=== PATIENT | female | born 1970 | race Caucasian/White ===

== ENCOUNTER 2022-02-21 07:36 | Emergency (ER) | payer BC ==
[~2022-02-21] VITALS: Ht 152.4 cm; Wt 70.8 kg
--- NOTE | 2022-02-21 07:36 | NUR ---
Dr Resendiz at the bedside for MSE.
[2022-02-21] MEDS ORDERED: MORPHINE SULFATE 4 MG/1 ML DISP.SYRIN ONE (07:45)
[2022-02-21] MEDS ORDERED: diphenhydrAMINE 50 MG/1 ML VIAL ONE (07:45)
[2022-02-21] MEDS ORDERED: IV NORMAL SALINE 1000 ML BAG IV ONE (07:45)
[2022-02-21] MEDS ORDERED: MORPHINE SULFATE 2 MG/1 ML DISP.SYRIN IV ONE (07:45)
[2022-02-21] MEDS ORDERED: diphenhydrAMINE 50 MG/1 ML VIAL IV ONE (07:45)
[2022-02-21] MEDS ORDERED: MAG HYDROX/AL HYDROX/SIMETH 30 ML LIQUID UDC PO ONE (07:45)
[2022-02-21] MEDS ORDERED: FAMOTIDINE. 20 MG/2 ML VIAL IV ONE ×2 (07:45)
[2022-02-21] MEDS ORDERED: METOCLOPRAMIDE HCL 10 MG/2 ML VIAL ONE (07:45)
[2022-02-21] MEDS ORDERED: LIDOCAINE VISCUS 2% 15 ML UDC MM ONE (07:45)
[2022-02-21] MEDS ORDERED: METOCLOPRAMIDE HCL 10 MG/2 ML VIAL IV ONE (07:45)
[2022-02-21 08:12] LABS: HEMATOCRIT 39.4 % (31.2-41.9); MEAN CORPUSCULAR HEMOGLOBIN 30.2 uug (24.7-32.8); MEAN CORPUSCULAR VOLUME 89.2 fL (75.5-95.3); PLATELET COUNT (AUTO) 226 K/uL (179-408)
[2022-02-21 08:23] LABS: BILIRUBIN,DIRECT 0.1 mg/dL (0.0-0.2); BILIRUBIN,TOTAL 0.5 mg/dL (0.2-1.0); CREATININE 0.8 mg/dL (0.6-1.3); TOTAL PROTEIN, SERUM 7.8 g/dL (6.4-8.2)
[2022-02-21] MEDS ORDERED: MAG HYDROX/AL HYDROX/SIMETH 30 ML LIQUID UDC ONE (08:29)
[2022-02-21] MEDS ORDERED: LIDOCAINE VISCUS 2% 15 ML UDC ONE (08:29)
[2022-02-21] MEDS ORDERED: CIPR500T5 PO (09:27)
[2022-02-21] MEDS ORDERED: ONDA4TAB5 PO (09:28)
[2022-02-21 09:46] VITALS: BP 110/70
--- NOTE | 2022-02-21 09:46 | NUR ---
IV removed. Catheter intact and site benign. Pressure and 4x4 gauze applied to site. No bleeding noted.
--- NOTE | 2022-02-21 09:47 | NUR ---
Patient discharged to home in stable condition. Written and verbal after care instructions given. Patient verbalizes understanding of instructions. Stressed follow up or return to ER for worsening s/s.
== END 2022-02-21 09:47 | disposition home or self-care (01) ==
LOC: ER 07:38
DX: R10.9 Unspecified abdominal pain (principal); K52.9 Noninfective gastroenteritis and colitis, unspecified
CPT/HCPCS: 36415; 71045; 74176; 80048; 80076; 83690; 85025; 96361; 96374; 96375; 99285; J1200; J2270; J2765; J3490; J7040; A4663